=== PATIENT | female | born 1930 ===

== ENCOUNTER → 2016-11-06 | Day surgery (SDC) | payer MEDICARE, OTHER ==
[~2016-11-06] VITALS: Ht 165.1 cm; Wt 91.3 kg
[~2016-11-06] MED LIST: AMOXICILLIN250 MG PO; ASCORBIC ACID500 MG PO; ASPIRIN325 MG PO; ATIVAN 1 MG1 MG PO; COLACE100 MG PO; CVS OMEGA-3 KR1 EAC1 PO; FISH OIL300 MG PO; FLONASE 50 MCG/16 GM NOSE; FOLIC ACID1 MG PO; L-ARGININE1000 MG PO; L-ARGININE500 M1 PO; LASIX40 MG PO; LEVOTHROID (S125 MCG PO; LIVALO2 MG PO; LYRICA 75MG CAP75 MG PO; MIRALAX17 GM PO; MSM1000 M1 PO; MULTI VITAMIN1 EACH PO; NEURONTIN600 MG PO; NITROGLYCERIN0.2 MG TRANS; NORCO 5-325 MG1 TAB PO; NORVASC10 MG PO; PLAVIX75 MG PO; PREMARIN VAG30 GM VAG; PRESERVISION A1 EAC2 PO; PRINIVIL OR ZES10 MG PO; RESTORIL15 MG PO; TYLENOL EXTRA500 MG PO; VITAMIN D1000 UNIT PO; ZETIA10 MG PO
--- NOTE | ~2016-11-06 | OR ---
PATIENT'S NAME: EARLE SALAZAR [facility] AGE: 86 Y [address] 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 PROCEDURE PERFORMED: Cystoscopy with left stent exchange. ANESTHESIA: MAC. COMPLICATIONS: None. INDICATION FOR PROCEDURE: The patient is an 86-year-old female with bilateral UPJ obstruction and atrophic right kidney. The patient has had prior left stent placement and presents today for stent exchange. DETAILS OF PROCEDURE: After informed consent was obtained, the patient was taken to the operating room. A MAC anesthetic was applied. She was placed in dorsal lithotomy position. The groin area was prepped and draped in normal sterile fashion. Cystoscope was introduced into the urethra and bladder without difficulty. Her left ureteral stent was identified in the ureteral orifice. Alligator forceps were used to partially remove the stent. A guidewire was then placed through the partially removed stent up into the renal pelvis. Following this, the stent was completely removed. The cystoscope was back-loaded over the guidewire. Next, a 6-[place] multi-length ureteral stent was passed over the guidewire up into the renal pelvis under fluoroscopic guidance. Radiograph imaging showed good positioning of the stent. The bladder was empty and the procedure terminated. The patient tolerated the procedure well and was transferred to recovery room in good condition. IVORY HEWITT MD PATIENT'S NAME: EARLE SALAZAR [facility] AGE: 86 Y [address] ROOM: [place] [address] LOCATION: [facility] [place] ADMIT DATE: 11/06/2016 OR/Procedure Report DISCHARGE DATE: FAMILY PHYSICIAN: Yanci Moore MD ATTENDING PHYSICIAN: Ivory Hewitt OPAL/modl /[id number] CC: Yanci Moore MD d: 11/06/167 t: 11/24/16 1512, OPERATIVE SUMMARY
[2016-11-06 11:20] LABS: BASOPHIL # 0.1 K/uL (0.0-0.2); BASOPHIL % 1.6 %; EOSINOPHIL # 0.2 K/uL (0.0-0.5); EOSINOPHIL % 2.1 %; HEMATOCRIT 42.1 % (30.0-46.0); HEMOGLOBIN 13.7 g/dL (10.0-15.0); IMMATURE GRANULOCYTE % 0.5 %; LYMPHOCYTE % 39.2 %; MCH 30.6 pg (27.0-34.0); MCHC 32.5 gm/dL (32.0-36.5); MONOCYTE # 0.9 K/uL (0.0-1.0); MONOCYTE % 11.3 %; MPV 9.2 fl (9.4-12.4); NEUTROPHIL # (ANC) 3.5 K/uL (1.8-7.8); NEUTROPHIL % 45.3 %; NRBC % 0 /100WBC (0-0.00); PLATELET COUNT 210 K/uL (150-450); RBC 4.48 M/uL (3.00-5.00); RDW-CV 13.9 % (11.9-14.6); WBC 7.6 K/uL (4.0-11.0)
[2016-11-06 12:03] LABS: ALBUMIN 3.3 gm/dL (3.5-5.0); ALK PHOS 78 IU/L (33-138); ALT 16 IU/L (12-78); ANION GAP 10.2 (10.0-19.0); AST 18 IU/L (10-40); BLOOD UREA NITROGEN 16 mg/dL (6-24); CALCIUM 8.7 mg/dL (8.5-10.5); CHLORIDE 109 mMol/L (96-110); CO2 29 mMol/L (22-32); CREATININE 0.6 mg/dL (0.5-1.1); ESTIMATED GFR (MDRD EQUATION) > 60; POTASSIUM 4.2 mMol/L (3.7-5.1); SODIUM 144 mMol/L (135-145); TOTAL BILIRUBIN 0.3 mg/dL (0.0-1.5); TOTAL PROTEIN 6.7 g/dL (6.0-8.4)
== END | disposition disaster alternative care site (69) ==
LOC: GPOC 11-02 13:00 → GSDC 07:00
PROVIDERS: Urology
PROC: 0T778DZ Dilation of Left Ureter with Intraluminal Device, Via Natural or Artificial Opening Endoscopic (ICD-10-PCS; principal; 2016-11-06)
PROC: 0TP98DZ Removal of Intraluminal Device from Ureter, Via Natural or Artificial Opening Endoscopic (ICD-10-PCS; 2016-11-06)
DX: N13.5 Crossing vessel and stricture of ureter without hydronephrosis (principal); I12.9 Hypertensive chronic kidney disease with stage 1 through stage 4 chronic kidney disease, or unspecified chronic kidney disease; N18.9 Chronic kidney disease, unspecified; I25.10 Atherosclerotic heart disease of native coronary artery without angina pectoris; E03.9 Hypothyroidism, unspecified; E78.5 Hyperlipidemia, unspecified; M19.90 Unspecified osteoarthritis, unspecified site; Z88.2 Allergy status to sulfonamides; Z90.49 Acquired absence of other specified parts of digestive tract; Z98.49 Cataract extraction status, unspecified eye; Z98.890 Other specified postprocedural states
CPT/HCPCS: C1769; J1956; J7030